=== PATIENT | male | born 1950 | race Caucasian/White ===

== ENCOUNTER 2024-06-15 13:56 | Emergency (ER) | payer MEDICARE, OTHER, SELFPAY ==
--- NOTE | 2024-06-15 14:09 | ECG_ITS ---
Test Date: 2024-06-15 13:17:36 Measurements Intervals [place] Rate: 90 P: 0 SD: 0 QRS: 5 QRSD: 83 T: 50 QT: 313 QTc: 384 Interpretive Statements ATRIAL FIBRILLATION No previous ECG available for comparison Electronically Signed On 06-15-2024 15:40:13 CDT by Oksana Christopher M.D.
[2024-06-15 14:10] VITALS: BP 114/68; PULSE 106; RESP 18; TEMP 36.2; O2SAT 97
--- NOTE | 2024-06-15 14:10 | ED.GENADULT ---
HPI - General Adult General Stated complaint: Chest Tightness Source: patient Mode of arrival: ambulatory Limitations: no limitations History of Present Illness HPI narrative: 73 y/o male with hx HTN and diabetes presented for c/o an episode of mid chest pressure last night, which resolved after one hour. Also reports after climbing up one flight of stairs he felt shortness of breath and had to sit down. Says he felt tired last night and went to sleep earlier than normal. Denies palpitations, dizziness, n/v or diaphoresis. Pt was referred to cardiology by pcp for elevated CT coronary calcium score, and is scheduled in Jun. Related Data Allergies Allergy/AdvReac Type Severity Reaction Status Date / Time No Known Allergies Allergy Verified 06/15/24 14:14 Review of Systems Review of Systems: CONSTITUTIONAL: Denies body aches, fever, chills, or sweats. CARDIOVASCULAR: Reports chest pressure Denies chest pain, palpitations, or edema. RESPIRATORY: Denies cough reports dyspnea. GASTROINTESTINAL: Denies abdominal pain, nausea, vomiting, or diarrhea. SKIN: Denies rash MUSCULOSKELETAL: Denies back pain, joint pain, or myalgia. NEUROLOGIC: Denies headache, numbness, tingling, or weakness. All systems reviewed & are unremarkable except as noted in HPI and below PMFSH Past Medical History Medical History Diabetes Elevated coronary artery calcium score Hypercholesterolemia Hypertension Retinopathy due to secondary diabetes Surgical History Surgical History H/O colonoscopy Hx of cholecystectomy Family History Family History Father Hypertension Mother Hypertension Heart disease Social History Social History Social History: 05/29/24 somewhat confident with medical forms Smoking status: Never smoker Alcohol intake: current Alcohol use details: rarely Substance use: never Substance use type: does not use Do You Feel Safe in your Home?: Yes Lack of Transportation: No Lack of Food: Never True Current Housing: I Have Housing Concerned About Future Housing: No Difficulty Paying Gas/Electric Bills: No Difficulty Paying for Meds: No Currently Unemployed: No Education: Trade/Vocational Certificate Difficulty w/ Childcare or Family Care: No Living arrangements: with family Occupation/Education: retired Gender identity (if verbalized by the patient): Male Comments At time of signature, I have reviewed and agree with nursing past medical, surgical, social and family history unless otherwise noted. Please see nursing chart for further information. There is no relevant family history pertinent to the presenting complaint Exam Narrative: GENERAL: Well-appearing, and in no acute distress. EYES: EOMI. No redness or drainage. Conjunctivae normal. ENT: Mucous membranes pink and moist. CHEST: No respiratory distress. Clear to auscultation. HEART: irregular rate and rhythm. SKIN: Warm, dry, Capillary refill normal. Normal skin turgor. NEURO: No focal deficits. Alert and oriented x3. Gait steady. PSYCH: Normal affect. Course Course Emergency Course: Patient is aware of diagnosis, understands and agrees to treatment plan. Anticipatory guidance given. Patient agrees to follow-up as directed and is aware of reasons to seek care at the emergency department. Portions of this record may have been created with voice recognition software Level of Care: Express Care Visit Transfer Transfered to: [facility] Transportation: Other (private vehicle) Transfer rationale: Pt is agreeable to transfer. Requests transfer to [facility] via private vehicle; declined ambulance. Risks of transportation reviewed with pt including injury, worsening of condition and . v/u. will be driving pt; Report called to hospital, spoke with Dr Scott, accepting physician. Pt is in stable condition at time of transfer. Advised to remain NPO and go directly to the hospital. Medical Decision Making MDM Narrative Medical decision making narrative: Advised ER transfer for c/o chest pressure and shortness of Breath. EKG afib, pt denies history of afib. Refuses ambulance. Pt is well appering. VSS. Differential Diagnosis Differential Diagnosis: STEMI, AAA, PE, pneumothorax, cardiac tamponade, esophageal rupture, pneumonia, GERD, musculoskeletal pain, endocarditis, pericarditis, URI, bronchitis, anxiety Vital Signs Vital Signs: reviewed ECG Data EKG #1: Attestation: I personally reviewed and interpreted this ECG as follows: (afib rate 90) ECG completion date: 06/15/24 ECG completion time: 13:17 Prior ECG tracings: not available for review EKG Interpretation: atrial fibrillation Discharge Plan Discharge Clinical Impression: Chest pressure Patient Disposition: Acute Care Hospital Condition: Stable Prescriptions: No Action atenolol 100 mg tablet 100 mg PO DAILY Qty: 90 1RF Jardiance 10 mg tablet 10 mg PO DAILY Qty: 90 1RF losartan 50 mg tablet 50 mg PO DAILY Qty: 90 1RF hydrocortisone 2.5 % cream 1 applic topical BID Qty: 20 0RF rosuvastatin 20 mg tablet 20 mg PO .HS Qty: 90 0RF Rx Instructions: Dose increased 04/27/24 metformin 500 mg tablet extended release 24 hr 1,000 mg PO BID Qty: 360 1RF Follow-up/Referrals: Rosio Mojica PA-C [Primary Care Provider] - Time of Disposition: 14:35
== END 2024-06-15 14:34 | disposition short-term general hospital (02) ==
LOC: EXPGOSH 14:00
PROVIDERS: Emergency Provider Nurse Practitioner Family; PCP Physician Assistant Medical
DX: R07.89 Other chest pain (principal); I48.91 Unspecified atrial fibrillation; E78.00 Pure hypercholesterolemia, unspecified; I10 Essential (primary) hypertension; E11.319 Type 2 diabetes mellitus with unspecified diabetic retinopathy without macular edema
CPT/HCPCS: 93005; 99213; G0463

== ENCOUNTER 2024-06-15 14:42 | Emergency (ER) | payer MEDICARE, SELFPAY ==
[2024-06-15] VITALS (11 sets, daily range): BP systolic 105–129; BP diastolic 62–82; PULSE 78–94; RESP 12–19; TEMP 36.3–36.6; O2SAT 96–98
--- NOTE | ~2024-06-15 | XR_ITS ---
XR chest 2V 06/15/2024 15:14 Indication: Chest pain and shortness of breath Procedure: 2 view chest Comparison: No prior studies for comparison. Findings: Heart size normal. No focal air space disease, pulmonary edema, pleural effusion or suspect ed pneumothorax. Impression: 1: No acute cardiopulmonary disease. Reviewed, dictated and finalized at location B. Impression: 1: No acute cardiopulmonary disease.
--- NOTE | 2024-06-15 14:43 | ECG_ITS ---
Test Date: 2024-06-15 14:47:54 Measurements Intervals [place] Rate: 94 P: 0 [place]: 0 QRS: 2 QRSD: 82 T: 36 QT: 324 QTc: 406 Interpretive Statements ATRIAL FIBRILLATION ABNORMAL ECG Compared to ECG 06/15/2024 13:17:36 No significant changes Electronically Signed On 06-16-2024 13:05:25 CDT by Ovidio Joseph M.D.
--- NOTE | 2024-06-15 14:57 | ED_ITS ---
HPI - Chest Pain General Chief Complaint: Chest Pain <Omar Bradley PA-C - Last Filed: 06/15/24 14:58> Stated Complaint: chest heaviness <Omar Bradley PA-C - Last Filed: 06/15/24 14:58> Time Seen by Provider: 06/15/24 14:57 <Omar Bradley PA-C - Last Filed: 06/15/24 14:58> Focused HPI: This is a 73-year-old male with history of diabetes, HTN who presents to the ED for chief complaint of shortness of breath and chest pain. Reports that he had an episode of chest heaviness in the central chest had not somewhat sharp pain. Also reports that he became short of breath on exertion today while going up stairs which is new for him. Denies any history of lung disease. He is scheduled to see a street cleaner in the coming months but has not had any heart history before. He does not smoke. Denies back pain, numbness, weakness, sweats, vomiting, syncope or palpiations. GENERAL: Well-appearing, well-nourished, and in no acute distress. HEAD: Normocephalic, atraumatic. CHEST: Clear to auscultation. No respiratory distress. HEART: Regular rate and rhythm. NEURO: Alert and oriented x3. Patient screened in triage and initial orders placed. Additional care and disposition to be based upon diagnostic testing and treatment. <Omar Bradley PA-C - Last Filed: 06/15/24 14:58> Focused HPI: This is a 73-year-old male with history of diabetes, HTN who presents to the ED for chief complaint of shortness of breath and chest pain. Reports that he had an episode of chest heaviness in the central chest, somewhat sharp pain last night. Also reports that he became short of breath on exertion today while going up stairs which is new for him. Denies any history of lung disease. He is scheduled to see a street cleaner in the coming months but has not had any heart history before. He does not smoke. Denies back pain, numbness, weakness, sweats, vomiting, syncope or palpitations. GENERAL: Well-appearing, well-nourished, and in no acute distress. HEAD: Normocephalic, atraumatic. CHEST: Clear to auscultation. No respiratory distress. HEART: Regular rate and rhythm. NEURO: Alert and oriented x3. Patient screened in triage and initial orders placed. Additional care and disposition to be based upon diagnostic testing and treatment. <Megan Pa PA-C - Last Filed: 06/15/24 21:28> Source: patient <Omar Bradley PA-C - Last Filed: 06/15/24 14:58> Mode of arrival: ambulatory <Omar Bradley PA-C - Last Filed: 06/15/24 14:58> Limitations: no limitations <Omar Bradley PA-C - Last Filed: 06/15/24 14:58> Related Data Allergies/Adverse Reactions: Allergies Allergy/AdvReac Type Severity Reaction Status Date / Time No Known Allergies Allergy Verified 06/15/24 14:14 <Omar Bradley PA-C - Last Filed: 06/15/24 14:58> Review of Systems Review of Systems: CONSTITUTIONAL: Denies fever CARDIOVASCULAR: Reports chest pain. Denies palpitations, or edema. RESPIRATORY: Reports dyspnea. <Megan Pa PA-C - Last Filed: 06/15/24 21:28> All systems reviewed & are unremarkable except as noted in HPI and below <Megan Pa PA-C Last Filed: 06/15/24 21:28> [facility] Past Medical History Medical History: Medical History Diabetes Elevated coronary artery calcium score Hypercholesterolemia Hypertension Retinopathy due to secondary diabetes <Omar Bradley PA-C - Last Filed: 06/15/24 14:58> Surgical History Surgical History: Surgical History H/O colonoscopy Hx of cholecystectomy <Omar Bradley PA-C - Last Filed: 06/15/24 14:58> Family History Family History: Family History Father Hypertension Mother Hypertension Heart disease <JASVIR Rosenthal Last Filed: 06/15/24 14:58> Social History Social History: Social History Social History: 05/29/24 somewhat confident with medical forms Smoking status: Never smoker Alcohol intake: current Alcohol use details: rarely Substance use: never Substance use type: does not use Do You Feel Safe in your Home?: Yes Lack of Transportation: No Lack of Food: Never True Current Housing: I Have Housing Concerned About Future Housing: No Difficulty Paying Gas/Electric Bills: No Difficulty Paying for Meds: No Currently Unemployed: No Education: Trade/Vocational Certificate Difficulty w/ Childcare or Family Care: No Living arrangements: with family Occupation/Education: retired Gender identity (if verbalized by the patient): Male <Omar Bradley PA-C - Last Filed: 06/15/24 14:58> Exam Narrative: GENERAL: Well-appearing, well-nourished, and in no acute distress. HEAD: Normocephalic, atraumatic. EYES: EOMI. NECK: Supple. No JVD CHEST: Clear to auscultation. No respiratory distress. No wheezes rales or rhonchi HEART: Regular rate and rhythm. No murmur heard. Normal peripheral pulses. EXTREMITIES: Normal range of motion. No edema. SKIN: Warm, dry, no rash. NEURO: No focal deficits. Alert and oriented x3. PSYCH: Normal mood and affect <Megan Pa PA-C - Last Filed: 06/15/24 21:28> Course Course Emergency Course: We spoke about further inpatient management versus close outpatient follow up. Patient would like to have outpatient follow up, does not wish to stay in the hospital at this time <Megan Pa PA-C - Last Filed: 06/15/24 21:28> Consultations Consultation #1: Spoke with Dr. Licea about patient and workup. Will help arrange close follow up <Megan Pa PA-C - Last Filed: 06/15/24 21:28> Date: 06/15/24 <Megan Pa PA-C - Last Filed: 06/15/24 21:28> Vital Signs Vital signs: Vital Signs Temperature 97.9 F 06/15/24 15:04 Pulse Rate 84 06/15/24 15:04 Respiratory Rate 18 06/15/24 15:04 Blood Pressure 121/77 06/15/24 15:04 Pulse Oximetry 98 06/15/24 15:04 Oxygen Delivery Room Air 06/15/24 15:04 Temperature 97.4 F L 06/15/24 16:41 Pulse Rate 85 06/15/24 19:01 Respiratory Rate 12 06/15/24 19:01 Blood Pressure 113/72 06/15/24 19:01 Pulse Oximetry 97 06/15/24 19:01 Oxygen Delivery Room Air 06/15/24 16:41 <Omar Bradley PA-C - Last Filed: 06/15/24 14:58> Vital Signs Temperature 97.9 F 06/15/24 15:04 Pulse Rate 84 06/15/24 15:04 Respiratory Rate 18 06/15/24 15:04 Blood Pressure 121/77 06/15/24 15:04 Pulse Oximetry 98 06/15/24 15:04 Oxygen Delivery Room Air 06/15/24 15:04 Temperature 97.4 F L 06/15/24 16:41 Pulse Rate 85 06/15/24 19:01 Respiratory Rate 12 06/15/24 19:01 Blood Pressure 113/72 06/15/24 19:01 Pulse Oximetry 97 06/15/24 19:01 Oxygen Delivery Room Air 06/15/24 16:41 <Megan Pa PA-C - Last Filed: 06/15/24 21:28> MDM - Chest Pain MDM Narrative Medical decision making narrative: Patient presents to the emergency department for new onset atrial fibrillation. He has been rate controlled in the 70s to 80s. He has no chest pain or shortness of breath at this time. CBC without concerning findings. Metabolic panel with some evidence of dehydration. Patient hydrated in the ED. He does report he had not drank much water today. EKG shows atrial fibrillation without ST changes. Baseline and 3 hour troponin are negative. D-dimer is not elevated. TSH is normal. We spoke about further inpatient management versus close outpatient follow up. Patient would like to have outpatient follow up, does not wish to stay in the hospital at this time. Spoke with Dr. Licea, patient's street cleaner rubber extrusion machine operator, about patient and workup. Will help arrange close follow up. Patient will be started on Xarelto base on [place] Vasc score. He was given strict return precautions <Megan Pa PA-C - Last Filed: 06/15/24 21:28> Differential Diagnosis Differential diagnosis: Likely stable angina, atypical chest pain, costochondritis and other ( arrhythmia) <Megan Pa PA-C - Last Filed: 06/15/24 21:28> Lab Data Attestation: I reviewed the patient's lab results. <Megan Pa PA-C - Last Filed: 06/15/24 21:28> Result diagrams: 06/15/24 14:54 06/15/24 14:54 <Omar Bradley PA-C - Last Filed: 06/15/24 14:58> Labs: Lab Results 06/15/24 06/15/24 Range/Units 14:54 17:41 WBC 8.1 (4.5-10.0) K/mm3 RBC 5.18 (4.6-6.20) M/mm3 Hgb 15.3 (14.0-18.0) g/dL Hct 45.7 (42.0-52.0) % MCV 88.2 (80-100) fl MCH 29.5 (26-34) pg MCHC 33.5 (32-36) g/dl RDW 13.9 (11.5-14.5) % Plt Count 198 (150-375) k/mm3 MPV 10.4 (7.4-10.4) fl Immature Gran % (Auto) 0.2 (0-0.5) % Neut % (Auto) 63.1 (45.5-73.1) % Lymph % (Auto) 26.5 (18.3-44.2) % [place] % (Auto) 7.7 (2.6-8.5) % Eos % (Auto) 1.9 (0-4.4) % Baso % (Auto) 0.6 (0.2-1.2) % Lymph # (Auto) 2.14 (0.9-3.2) K/mm3 [place] # (Auto) 0.6 (0.1-0.6) K/mm3 Eos # (Auto) 0.2 (0-0.3) K/mm3 Baso # (Auto) 0.1 (0.0-0.1) K/mm3 Abs Immat Gran (auto) 0.02 (0.00-0.031) K/mm3 Absolute Neuts (auto) 5.1 (1.3-6.7) K/mm3 Absolute Nucleated RBC 0.000 (0.0-0.012) K/mm3 Nucleated RBC % 0.0 (0.0-0.2) % PT 12.9 (11.1-14.7) Seconds INR 0.9 APTT 28.4 (22.3-36.8) Seconds D-Dimer < 0.27 (<0.48) ug/mL Sodium 138 (137-145) mmol/L Potassium 4.1 (3.4-5.0) mmol/L Chloride 106 (98-107) mmol/L Carbon Dioxide 19 L (22-30) mmol/L Anion Gap 13 H (4-12) mmol/L BUN 21 H (9-20) mg/dL Creatinine 1.20 (0.7-1.3) mg/dL Estim Creat Clear Calc 61 ml/min Estimated GFR 60 (59 - ) Glucose 142 H (65-110) mg/dL Calcium 9.3 (8.4-10.2) mg/dL Total Bilirubin 0.4 (0.2-1.3) mg/dL AST 26 (17-59) U/L ALT 32 (6-50) U/L Alkaline Phosphatase 43 (38-126) U/L Troponin I < 0.012 < 0.012 (0.000-0.034) ng/mL Total Protein 8.0 (6.3-8.2) g/dL Albumin 4.5 (3.5-5.1) g/dL Lipase 119 (23-300) U/L TSH (Reflex) 1.660 (0.465-4.68) uIU/mL <Omar Bradley PA-C - Last Filed: 06/15/24 14:58> Lab Results 06/15/24 06/15/24 Range/Units 14:54 17:41 WBC 8.1 (4.5-10.0) K/mm3 RBC 5.18 (4.6-6.20) M/mm3 Hgb 15.3 (14.0-18.0) g/dL Hct 45.7 (42.0-52.0) % MCV 88.2 (80-100) fl MCH 29.5 (26-34) pg MCHC 33.5 (32-36) g/dl RDW 13.9 (11.5-14.5) % Plt Count 198 (150-375) k/mm3 MPV 10.4 (7.4-10.4) fl Immature Gran % (Auto) 0.2 (0-0.5) % Neut % (Auto) 63.1 (45.5-73.1) % Lymph % (Auto) 26.5 (18.3-44.2) % [place] % (Auto) 7.7 (2.6-8.5) % Eos % (Auto) 1.9 (0-4.4) % Baso % (Auto) 0.6 (0.2-1.2) % Lymph # (Auto) 2.14 (0.9-3.2) K/mm3 [place] # (Auto) 0.6 (0.1-0.6) K/mm3 Eos # (Auto) 0.2 (0-0.3) K/mm3 Baso # (Auto) 0.1 (0.0-0.1) K/mm3 Abs Immat Gran (auto) 0.02 (0.00-0.031) K/mm3 Absolute Neuts (auto) 5.1 (1.3-6.7) K/mm3 Absolute Nucleated RBC 0.000 (0.0-0.012) K/mm3 Nucleated RBC % 0.0 (0.0-0.2) % PT 12.9 (11.1-14.7) Seconds INR 0.9 APTT 28.4 (22.3-36.8) Seconds D-Dimer < 0.27 (<0.48) ug/mL Sodium 138 (137-145) mmol/L Potassium 4.1 (3.4-5.0) mmol/L Chloride 106 (98-107) mmol/L Carbon Dioxide 19 L (22-30) mmol/L Anion Gap 13 H (4-12) mmol/L BUN 21 H (9-20) mg/dL Creatinine 1.20 (0.7-1.3) mg/dL Estim Creat Clear Calc 61 ml/min Estimated GFR 60 (59 - ) Glucose 142 H (65-110) mg/dL Calcium 9.3 (8.4-10.2) mg/dL Total Bilirubin 0.4 (0.2-1.3) mg/dL AST 26 (17-59) U/L ALT 32 (6-50) U/L Alkaline Phosphatase 43 (38-126) U/L Troponin I < 0.012 < 0.012 (0.000-0.034) ng/mL Total Protein 8.0 (6.3-8.2) g/dL Albumin 4.5 (3.5-5.1) g/dL Lipase 119 (23-300) U/L TSH (Reflex) 1.660 (0.465-4.68) uIU/mL <Megan Pa PA-C - Last Filed: 06/15/24 21:28> Imaging Data Radiologist's impression: ITS Impressions Chest X-Ray 06/15/24 15:15 Impression: 1: No acute cardiopulmonary disease. <Megan Pa PA-C - Last Filed: 06/15/24 21:28> ECG Data EKG #1: ECG completion date: 06/15/24 <Megan Pa PA-C - Last Filed: 06/15/24 21:28> EKG Interpretation: normal rate, atrial fibrillation, no ST changes and normal QT <Megan Pa PA-C - Last Filed: 06/15/24 21:28> Critical Care Time Critical Care Time Critical Care Time: No <Megan Pa PA-C - Last Filed: 06/15/24 21:28> Discharge Plan Discharge Clinical Impression: Atrial fibrillation, new onset <JASVIR Rosenthal Last Filed: 06/15/24 14:58> Patient Disposition: Home, Self-Care <Omar Bradley PA-C - Last Filed: 06/15/24 14:58> Condition: Stable <JASVIR Rosenthal Last Filed: 06/15/24 14:58> Instructions: A-fib (Atrial Fibrillation) (ED) <Omar Bradley PA-C - Last Filed: 06/15/24 14:58> Additional Instructions: Return to the Emergency Department if you experience fever, chest pain, shortness of breath, swelling in your legs, or any other symptoms that are concerning to you Take Xarelto as prescribed Follow up with your street cleaner. You should be getting a call on Tuesday to move up your follow up. I spoke with Dr. Licea about you today to help arrange your follow up <Omar Bradley PA-C - Last Filed: 06/15/24 14:58> Prescriptions: New Xarelto 20 mg tablet 20 mg PO DAILY Qty: 30 0RF Rx Instructions: must administer with evening meal No Action atenolol 100 mg tablet 100 mg PO DAILY Qty: 90 1RF Jardiance 10 mg tablet 10 mg PO DAILY Qty: 90 1RF losartan 50 mg tablet 50 mg PO DAILY Qty: 90 1RF hydrocortisone 2.5 % cream 1 applic topical BID Qty: 20 0RF rosuvastatin 20 mg tablet 20 mg PO .HS Qty: 90 0RF Rx Instructions: Dose increased 04/27/24 metformin 500 mg tablet extended release 24 hr 1,000 mg PO BID Qty: 360 1RF <Omar Bradley PA-C - Last Filed: 06/15/24 14:58> Follow-up/Referrals: Rosio Mojica PA-C [Primary Care Provider] - <Omar Bradley PA-C - Last Filed: 06/15/24 14:58> Quality HEART score for chest pain patients History: slightly suspicious <Megan Pa PA-C - Last Filed: 06/15/24 21:28> ECG: normal <Megan Pa PA-C - Last Filed: 06/15/24 21:28> Age: > or = to 65 years <Megan Pa PA-C - Last Filed: 06/15/24 21:28> Risk factors: 1 or 2 risk factors <Megan Pa PA-C - Last Filed: 06/15/24 21:28> Troponin: < or = to 1x normal limit <Megan Pa PA-C - Last Filed: 06/15/24 21:28> Heart score: 3 <Megan Pa PA-C - Last Filed: 06/15/24 21:28>
[2024-06-15 15:01] LABS: Basophils Absolute Auto 0.1 K/mm3 (0.0-0.1); Basophils Percent Auto 0.6 % (0.2-1.2); Eosinophils Absolute Auto 0.2 K/mm3 (0-0.3); Eosinophils Percent Auto 1.9 % (0-4.4); Hematocrit 45.7 % (42.0-52.0); Hemoglobin 15.3 g/dL (14.0-18.0); Immature Granulocyte Absolute 0.02 K/mm3 (0.00-0.031); Immature Granulocyte Percent A 0.2 % (0-0.5); Lymphocytes Absolute Auto 2.14 K/mm3 (0.9-3.2); Lymphocytes Percent Auto 26.5 % (18.3-44.2); Mean Corpuscular HGB Conc 33.5 g/dl (32-36); Mean Corpuscular Hemoglobin 29.5 pg (26-34); Mean Corpuscular Volume 88.2 fl (80-100); Mean Platelet Volume 10.4 fl (7.4-10.4); Monocytes Absolute Auto 0.6 K/mm3 (0.1-0.6); Monocytes Percent Auto 7.7 % (2.6-8.5); Neutrophils Absolute Auto 5.1 K/mm3 (1.3-6.7); Neutrophils Percent Auto 63.1 % (45.5-73.1); Platelet Count Result 198 k/mm3 (150-375); Red Blood Count 5.18 M/mm3 (4.6-6.20); Red Cell Distribution Width 13.9 % (11.5-14.5); White Blood Count 8.1 K/mm3 (4.5-10.0)
[2024-06-15 15:15] LABS: Alanine Aminotransferase 32 U/L (6-50); Albumin Level 4.5 g/dL (3.5-5.1); Alkaline Phosphatase 43 U/L (38-126); Anion Gap 13 mmol/L (4-12); Aspartate Amino Transferase 26 U/L (17-59); Bilirubin,Total 0.4 mg/dL (0.2-1.3); Blood Urea Nitrogen 21 mg/dL (9-20); Calcium 9.3 mg/dL (8.4-10.2); Carbon Dioxide 19 mmol/L (22-30); Chloride 106 mmol/L (98-107); Estimated CRCL calculation 61 ml/min; Estimated Glomerular Filt Rate 60; Glucose 142 mg/dL (65-110); Lipase 119 U/L (23-300); Potassium 4.1 mmol/L (3.4-5.0); Sodium 138 mmol/L (137-145)
[2024-06-15 15:19] LABS: INR 0.9; Partial Thromboplastin Time 28.4 Seconds (22.3-36.8); Prothrombin Time 12.9 Seconds (11.1-14.7)
[2024-06-15 15:26] LABS: Troponin I < 0.012 ng/mL (0.000-0.034)
[2024-06-15] MEDS: SODIUM CHLORIDE 0.9% IV 500 ML 999 ML IV CONT (18:04)
[2024-06-15 18:19] LABS: Troponin I < 0.012 ng/mL (0.000-0.034)
[2024-06-15 19:09] LABS: D Dimer < 0.27 ug/mL (<0.48)
--- NOTE | 2024-06-15 21:19 | PC.NURSE ---
BLAS Pa at bedside updating pt and family and answering questions prior to pt d/c.
[2024-06-15] MEDS: RIVAROXABAN 20 MG TABLET PO (21:30)
== END 2024-06-15 21:36 | disposition home or self-care (01) ==
PROVIDERS: Emergency Medicine; Emergency Provider Physician Assistant; PCP Physician Assistant Medical
DX: I48.91 Unspecified atrial fibrillation (principal); I10 Essential (primary) hypertension; E78.00 Pure hypercholesterolemia, unspecified; E11.319 Type 2 diabetes mellitus with unspecified diabetic retinopathy without macular edema; Z90.49 Acquired absence of other specified parts of digestive tract; Z79.84 Long term (current) use of oral hypoglycemic drugs; Z79.899 Other long term (current) drug therapy
CPT/HCPCS: 36415; 71046; 80053; 83690; 84443; 84484; 85025; 85380; 85610; 85730; 93005; 99284; A9270; J7040

== ENCOUNTER 2024-09-22 08:24 | Emergency (ER) | payer MEDICARE, SELFPAY ==
--- NOTE | ~2024-09-22 | XR_ITS ---
EXAMINATION: XR chest 2V DATE: 09/22/2024 08:55 INDICATION: Productive cough. Wheezing. TECHNIQUE: Frontal and lateral views of the chest were obtained. COMPARISON: Chest 2 views 06/15/2024 FINDINGS: There is no pneumonia, pleural effusion, or pneumothorax. The heart size is normal. IMPRESSION: 1. No acute cardiopulmonary disease. Reviewed, dictated and finalized at location [facility]
[2024-09-22 08:34] VITALS: BP 134/66; PULSE 74; RESP 16; TEMP 36.3; O2SAT 96
--- NOTE | 2024-09-22 08:46 | ED_ITS ---
HPI - URI/Sore Throat General Chief Complaint: Upper Respiratory Infection Stated Complaint: Cough Time Seen by Provider: 09/22/24 08:45 Source: patient Mode of arrival: ambulatory Limitations: no limitations History of Present Illness HPI Narrative: Jonathan is a 74-year-old male patient presenting to the clinic today with complaints of productive cough with brown phlegm and slight headache x3 days. He denies any shortness of breath or chest pain. No fevers, chills, body aches. MD elicited complaint: sore throat and nasal congestion Related Data Home Medications ?Medication ?Instructions ?Recorded ?Confirmed ?Last Taken ?Type benzonatate 100 mg capsule mg PO 09/22/24 Unknown History Allergies Allergy/AdvReac Type Severity Reaction Status Date / Time No Known Allergies Allergy Verified 09/22/24 08:43 Review of Systems Review of Systems: Pertinent positives per HPI. Patient denies any fever, chills, rash, visual changes, dizziness, shortness of breath, chest pain, palpitations, nausea, vomit ing, diarrhea, constipation, abdominal pain, or any urinary issues. [facility] Past Medical History Medical History MANDY (obstructive sleep apnea) mild AHI 4% . Jul 2024 @ home study thru cardio @ [facility] Atrial fibrillation, transient Elevated coronary artery calcium score Retinopathy due to secondary diabetes Hypercholesterolemia Diabetes Hypertension Surgical History Surgical History H/O colonoscopy Hx of cholecystectomy Family History Family History Father Hypertension Mother Hypertension Heart disease Social History Social History Social History: 08/13/24 somewhat confident with medical forms Smoking status: Never smoker Alcohol intake: current Alcohol use details: rarely Substance use: never Substance use type: does not use Do You Feel Safe in your Home?: Yes Lack of Transportation: No Lack of Food: Never True Current Housing: I Have Housing Concerned About Future Housing: No Difficulty Paying Gas/Electric Bills: No Difficulty Paying for Meds: No Currently Unemployed: No Education: Trade/Vocational Certificate Difficulty w/ Childcare or Family Care: No Living arrangements: with family Occupation/Education: retired Gender identity (if verbalized by the patient): Male Comments At the time of my signature, I reviewed and agree with the nursing past medical, surgical, social, and family history. There is no relevant family history pertinent to the patient complaint. Exam Narrative: General: Well-developed, obese, in no apparent distress Head: Normocephalic, atraumatic Eyes: Pupils equally round and reactive to light bilaterally, EOM intact, sclera and conjunctive clear, no discharge, lids normal Ears: TMs intact and congested, ear canals clear, no drainage, grossly hearing normal. Nose: Nares patent, clear nasal discharge, no inflammation, no sinus tenderness. Mouth: Oral pharynx without lesions or masses, good dentition, MMM. Neck: Supple, trachea midline, no enlargement of anterior or posterior cervical nodes, no thyroid masses or goiter palpable. Cardio: Regular rate and rhythm, s1 and s2 normal, no murmur appreciated. Resp: Inspiratory wheezing with expiratory rhonchi, no rales or rubs Course Course Emergency Course: Portions of this record may have been created with voice recognition software. Level of Care: Express Care Visit Vital Signs Vital signs: Vital Signs Temperature 36.3 C L 09/22/24 08:34 Pulse Rate 74 09/22/24 08:34 Respiratory Rate 16 09/22/24 08:34 Blood Pressure 134/66 09/22/24 08:34 Pulse Oximetry 96 09/22/24 08:34 Temperature 36.3 C L 09/22/24 08:34 Pulse Rate 74 09/22/24 08:34 Respiratory Rate 16 09/22/24 08:34 Blood Pressure 134/66 09/22/24 08:34 Pulse Oximetry 96 09/22/24 08:34 Oxygen Delivery Room Air 09/22/24 08:40 Vital signs reviewed MDM - URI/Sore Throat MDM Narrative Medical decision making narrative: At the time of visit patient is resting comfortably on the exam table. Patient appears to be nontoxic. Labs: COVID and influenza testing was performed. Influenza a testing was positive. COVID is negative Diagnostics: Chest x-rays negative for any acute cardiopulmonary process. Plan: Patient has influenza a/bronchitis. Prescription for albuterol inhaler and prednisone was sent to the pharmacy. Supportive measures were discussed with the patient and they voiced understanding discharge instructions and agrees to treatment plan. Return precautions reviewed Differential Diagnosis Differential diagnosis: Likely upper respiratory infection, otitis media, sinusitis, viral infection, bronchitis, influenza, pharyngitis and other (COVID) Lab Data Labs: Lab Results 09/22/24 Range/Units 09:05 POC SARS CoV-2 Ag Negative (Negative) Imaging Data Radiologist's impression: ITS Impressions Chest X-Ray 09/22/24 08:56 IMPRESSION: 1. No acute cardiopulmonary disease. Discharge Plan Discharge Clinical Impression: Bronchitis, Influenza A Patient Disposition: Home, Self-Care Condition: Stable Instructions: Antibiotic Form, Influenza (ED), Acute Bronchitis (ED) Additional Instructions: Take prescription medications only as prescribed-albuterol inhaler and prednisone Increase fluids and stay well hydrated Tylenol/motrin for pain/fever Flonase and OTC antihistamines as directed Vicks vapor rub to open sinuses Sinus rinses for congestion Cepacol spray, cough drops, throat lozenges, warm tea with honey/lemon, gargle salt water to soothe throat BRAT diet for diarrhea Clear liquids x 24 hours then advance as tolerated for nausea/vomiting Go to the ED if you develop a worsening in your condition- high fever not controlled by Tylenol or Motrin, dehydration, weakness, lethargy, shortness of breath, or chest pain. Follow up with your PCP in 3-5 days if symptoms persist. Patient Language: Nigerien Prescriptions: New prednisone 20 mg tablet 40 mg PO DAILY 5 Days Qty: 10 0RF albuterol sulfate 90 mcg/actuation HFA aerosol inhaler 2 puff inhalation Q4-6H PRN (Reason: shortness of breath or wheezing) 30 Days Qty: 8.5 0RF No Action benzonatate 100 mg capsule PO hydrocortisone 2.5 % cream 1 applic topical BID Qty: 20 0RF Xarelto 20 mg tablet 20 mg PO DAILY Qty: 30 0RF Rx Instructions: must administer with evening meal metformin 500 mg tablet extended release 24 hr 1,000 mg PO BID Qty: 360 1RF losartan 50 mg tablet 50 mg PO DAILY Qty: 90 1RF Jardiance 10 mg tablet 10 mg PO DAILY Qty: 90 1RF atenolol 100 mg tablet 100 mg PO DAILY Qty: 90 1RF rosuvastatin 20 mg tablet 20 mg PO .HS Qty: 90 1RF Rx Instructions: Dose increased 04/27/24 Follow-up/Referrals: Rosio Mojica PA-C [Primary Care Provider] - Time of Disposition: 09:06 Quality NIHSS Nursing Documentation ED NIHSS nursing documentation: reviewed/agree
[2024-09-22 09:07] LABS: EDCOVIDSCREEN Negative (Negative)
[2024-09-22 09:11] LABS: EDINFLUASCREEN Positive (Negative); EDINFLUBSCREEN Negative (Negative)
== END 2024-09-22 09:12 | disposition home or self-care (01) ==
PROVIDERS: Emergency Provider Nurse Practitioner Family; PCP Physician Assistant Medical
DX: J40 Bronchitis, not specified as acute or chronic (principal); J10.1 Influenza due to other identified influenza virus with other respiratory manifestations; Z20.822 Contact with and (suspected) exposure to COVID-19; I48.91 Unspecified atrial fibrillation; I10 Essential (primary) hypertension; E11.319 Type 2 diabetes mellitus with unspecified diabetic retinopathy without macular edema; Z79.84 Long term (current) use of oral hypoglycemic drugs; E78.00 Pure hypercholesterolemia, unspecified
CPT/HCPCS: 71046; 87426; 87804; 99213; G0463